=== PATIENT | female | born 1990 | race American Indian/Alaskan Native ===

== ENCOUNTER 2017-05-01 11:16 | Emergency (ER) | payer MEDICAID ==
[2017-05-01] MEDS ORDERED: ROCEPHIN IM ONE (14:36)
[2017-05-01] MEDS ORDERED: XYLOCAINE 1% MPF 5 mL INFILTRATI ONE (14:36)
[2017-05-01] MEDS ORDERED: MOTRIN PO ONE (14:37)
[2017-05-01 15:00] LABS: Bilirubin,Urine NEG (Negative); Blood,Urine SM (Negative); Ketones,Urine NEG (Negative); Leukocyte Esterase,Urine TR (Negative); Nitrite,Urine NEG (Negative); Protein,Urine <15 mg/dL mg/dL (Negative); Urobilinogen,Urine < 2.0 mg/dL (<2.0); WBC,Urine < 1.0 /HPF (0.0-6.0)
[2017-05-01 15:02] VITALS: BP 122/87
--- NOTE | 2017-05-02 18:45 | Emergency Department Report ---
Entered by MARCELINA ZAIDI, acting as scribe for DIANE MALIK PA. ED Female HPI - General Chief complaint: Rectal Pain Stated complaint: STD Time Seen by Provider: 05/01/17 14:12 Source: patient, family Mode of arrival: Ambulatory Limitations: No Limitations - History of Present Illness Initial comments: 26 year old female with no significant PMHx presents to ED with c/o rectal pain and possible STD exposure for 2 days. Patient reports a possible hemorrhoid with swelling to rectal area and rates pain 6/10 in severity. Patient reports that her partner was exposed to Chlamydia and told her to get checked out. Patient reports mild thick vaginal discharge, dysuria, frequency, urgency, odor , and haematochezia but denies vaginal bleeding, nausea, vomiting, abd pain, fever, and chills Allergic to latex. LMP was on 04/16/17. MD Complaint: vaginal discharge, dysuria, possible STD, other (rectal pain and edema) Onset/Timin -: days(s) (2) Location: other (Rectal) Severity: moderate Severity scale (0 -10): 6 Quality: sharp, burning Consistency: constant Improves with: none Worsens with: urination, movement Are you Now?: No Last Menstrual Period: 04/16/17 EDC: 01/21/18 Associated Symptoms: vaginal discharge, dysuria, other (hemrroid). denies: vaginal bleeding, abdominal pain, nausea/vomiting, fever/chills, headaches, loss of appetite, hematuria, rash, seizure, shortness of breath, weakness - Related Data Sexually active: Yes Previous Rx's Medication Instructions Recorded Last Taken Type Doxycycline [Vibramycin CAP] 100 mg PO Q12HR #14 capsule 05/01/17 Unknown Rx Hydrocortisone [Proctosol-Hc] 28.35 gm RC BID #1 cream..g. 05/01/17 Unknown Rx Ibuprofen [Motrin] 600 mg PO Q8H PRN #15 tablet 05/01/17 Unknown Rx Lidocaine Topical 5% [Xylocaine 35.44 gm TP TID PRN #1 tube 05/01/17 Unknown Rx Topical 5%] Allergies Allergy/AdvReac Type Severity Reaction Status Date / Time erythromycin base Allergy Unknown Verified 05/01/17 12:54 latex Allergy Hives Verified 05/01/17 12:54 ED Review of Systems Comment: All other systems reviewed and negative Constitutional: denies: chills, fever Respiratory: denies: cough, orthopnea, shortness of breath, SOB with exertion, SOB at rest, stridor, wheezing Cardiovascular: denies: chest pain, palpitations, edema, syncope Gastrointestinal: other (rectal pain). denies: abdominal pain, nausea, vomiting , diarrhea, constipation, hematemesis, melena, hematochezia Genitourinary: urgency, dysuria, frequency, discharge (mild thick discharge with odor). denies: hematuria Musculoskeletal: denies: back pain, joint swelling, arthralgia Skin: denies: rash, lesions Neurological: denies: headache, weakness, numbness, paresthesias, abnormal gait , vertigo ED Past Medical Hx - Past Medical History Previous Medical History?: No - Surgical History Past Surgical History?: No - Family History Family history: no significant - Social History Smoking Status: Never Smoker Substance Use Type: Alcohol Other Social History: single - Medications Home Medications: Home Medications Medication Instructions Recorded Confirmed Last Taken Type Doxycycline [Vibramycin CAP] 100 mg PO Q12HR #14 capsule 05/01/17 Unknown Rx Hydrocortisone [Proctosol-Hc] 28.35 gm RC BID #1 cream..g. 05/01/17 Unknown Rx Ibuprofen [Motrin] 600 mg PO Q8H PRN #15 tablet 05/01/17 Unknown Rx Lidocaine Topical 5% [Xylocaine 35.44 gm TP TID PRN #1 tube 05/01/17 Unknown Rx Topical 5%] ED Physical Exam - General Limitations: No Limitations General appearance: alert, in no apparent distress - Head Head exam: Present: atraumatic, normocephalic, normal inspection - Eye Eye exam: Present: normal appearance, PERRL, EOMI. Absent: scleral icterus, conjunctival injection - ENT ENT exam: Present: normal exam, normal orophraynx, mucous membranes moist - Neck Neck exam: Present: normal inspection, full ROM. Absent: tenderness, meningismus, lymphadenopathy - Respiratory Respiratory exam: Present: normal lung sounds bilaterally. Absent: respiratory distress, wheezes, rales, rhonchi, stridor, chest wall tenderness - Cardiovascular Cardiovascular Exam: Present: regular rate, normal rhythm, normal heart sounds. Absent: systolic murmur, diastolic murmur - GI/Abdominal GI/Abdominal exam: Present: soft, normal bowel sounds. Absent: distended, tenderness, guarding, rebound, rigid - Rectal Rectal exam: Present: hemorrhoids, tenderness. Absent: normal inspection, black stool, bloody stool, fecal impaction, mass - External exam: Present: normal external exam. Absent: erythema, swelling, lesions, lacerations, ecchymosis, bleeding - Extremities Exam Extremities exam: Present: normal inspection, full ROM, normal capillary refill. Absent: tenderness, pedal edema, joint swelling, calf tenderness - Back Exam Back exam: Present: normal inspection, full ROM. Absent: tenderness, CVA tenderness (R), CVA tenderness (L), muscle spasm, paraspinal tenderness, vertebral tenderness, rash noted - Neurological Exam Neurological exam: Present: alert, oriented X3, normal gait, reflexes normal. Absent: motor sensory deficit - Psychiatric Psychiatric exam: Present: normal affect, normal mood - Skin Skin exam: Present: warm, dry, intact, normal color. Absent: rash ED Course Vital Signs 05/01/17 05/01/17 05/01/17 12:56 14:45 14:50 Temperature 98.7 F 98.6 F Pulse Rate 99 H 56 L Respiratory 17 18 16 Rate Blood Pressure 122/89 Blood Pressure 122/87 [Left] O2 Sat by Pulse 100 98 Oximetry - Reevaluation(s) Reevaluation #1: 05/01/17 14:41 Patient given motrin and rocephin 250 mg im and will be covered with doxycline for Chlamydia since she has macrolides allergy ED Medical Decision Making - Medical Decision Making ED course: Patient to the emergency room complaining of rectal pain and reports hemorrhoids and also concerns of exposure to STD and report vaginal discharge with odor. She wanted to be treated empirically for gonorrhea and chlamydia. Patient given Rocephin 250 mg IM in emergency room without any adverse reaction. She is allergic to macrolides so she was given prescription for doxycycline which will cover chlamydia. Urinalysis did not show any urinary tract infection. Patient with external hemorrhoid,small. She was given Motrin 800 mg in emergency room to help with pain. I discussed diagnosis and treatment plan the patient and she voiced understanding. Vital signs are stable and she is afebrile Diagnostic/labs: Urinalysis is stable Assessment/plan 1. External hemorrhoid not complicated-Motrin 800 mg by mouth given in emergency room and prescription for topical lidocaine and an Proctosol given. 2. Female concerns for STD-patient given Rocephin 250 mg IM in emergency room and prescription for doxycycline to cover chlamydia and Motrin 3: Vaginal discharge-treated empirically for gonorrhea and chlamydia per patient request 4. Dysuria 5-rectal pain-treated with pain medicine and emergency room Patient encouraged to practice safe sex. Encouraged to refrain from having sex over the next 2 weeks Follow-up with health department or some outside Medical [facility] for repeat STD testing in in 7-10 days. ED Disposition Clinical Impression: Acute hemorrhoid, Pain, rectal, Dysuria, Vaginal discharge, Exposure to chlamydia Disposition: TO HOME OR SELFCARE Is pt being admited?: No Does the pt Need Aspirin: No Condition: Stable Instructions: Hemorrhoids (ED), Sexually Transmitted Diseases (ED), Safe Sex ( ED), Dysuria (ED) Additional Instructions: Practice safe sex Refrain from having sex for the next 2 weeks Follow-up at the health department in 7-10 days for STD testing We will call you when you urine resolved and if he needs to be an antibiotic will call in antibiotic to pharmacy Prescriptions: Doxycycline [Vibramycin CAP] 100 mg PO Q12HR #14 capsule Hydrocortisone [Proctosol-Hc] 28.35 gm RC BID #1 cream..g. Ibuprofen [Motrin] 600 mg PO Q8H PRN #15 tablet PRN Reason: Pain Lidocaine Topical 5% [Xylocaine Topical 5%] 35.44 gm TP TID PRN #1 tube PRN Reason: Hemorrhoids Referrals: [facility] [Outside] - 7-10 days [facility] [Outside] - 7-10 days PRIMARY CARE,MD [Primary Care Provider] - 7-10 days This documentation as recorded by the DEJUAN lara PEARL,accurately reflects the service I personally performed and the decisions made by ,DIANE MALIK PA.
== END 2017-05-01 14:50 | disposition home or self-care (01) ==
LOC: ED 11:16
DX: K62.89 Other specified diseases of anus and rectum (principal); R30.0 Dysuria; N89.8 Other specified noninflammatory disorders of vagina; Z20.2 Contact with and (suspected) exposure to infections with a predominantly sexual mode of transmission
CPT/HCPCS: 81001; 81025; 96372; 99283; J0696